=== PATIENT | female | born 1960 | race Caucasian/White ===

== ENCOUNTER 2018-03-02 21:58 | Emergency (ER) | payer OTHER ==
[~2018-03-02] VITALS: Ht 165.1 cm; Wt 63.5 kg
[2018-03-02] MEDS ORDERED: LEVEMIR (22:10)
[2018-03-02 22:19] LABS: ABSOLUTE BASOPHILS 0.1 thou/uL (0.0-0.2); ABSOLUTE EOSINOPHILS 0.4 thou/uL (0.0-0.7); ABSOLUTE LYMPHOCYTES 3.1 thou/uL (0.8-5.3); ABSOLUTE MONOCYTES 0.5 thou/uL (0.0-1.2); ABSOLUTE NEUTROPHILS 5.1 thou/uL (1.6-8.1); BASOPHILS 0.8 %; EOSINOPHILS 4.1 %; HEMATOCRIT 39.2 % (37.0-47.0); HEMOGLOBIN 13.3 gm/dL (12.0-15.0); LYMPHOCYTES 33.8 %; MCH 29.7 pg (26.0-34.0); MCHC 34.1 g/dL (28.0-37.0); MCV 87.3 fL (80.0-100.0); MONOCYTES 5.5 %; MPV 8.6 fl. (7.2-11.1); NUCLEATED RBCS 0 /100WBC; PLATELET COUNT* 263 thou/uL (150-400); POLYS 55.8 %; RBC 4.49 mil/uL (4.20-5.00); RDW-CV 12.8 % (10.5-14.5); WBC 9.2 thou/uL (4.0-11.0)
[2018-03-02 22:31] LABS: ANION GAP 9 mmol/L (7-16); BUN 16 mg/dL (7-18); CALCIUM 8.6 mg/dL (8.5-10.1); CHLORIDE 99 mmol/L (98-107); CO2 26 mmol/L (21-32); CREATININE 1.2 mg/dL (0.6-1.3); GLUCOSE 400 mg/dL (70-99); SODIUM 134 mmol/L (136-145)
[2018-03-02 22:38] LABS: ALBUMIN 3.8 g/dL (3.4-5.0); ALKALINE PHOSPHATASE 89 U/L (46-116); SGOT 11 U/L (15-37); SGPT 21 U/L (30-65); TOTAL BILIRUBIN 0.6 mg/dL (<0.1-1.0); TOTAL PROTEIN 7.2 g/dL (6.4-8.2); TROPONIN-I LEVEL <0.06 ng/mL (<0.06)
[2018-03-02] MEDS ORDERED: KEPPRA1000 MG (22:48)
[2018-03-02] MEDS ORDERED: HYDROCODON-ACE1 EAC5 (22:49)
[2018-03-02] MEDS ORDERED: NEURONTIN600 MG (22:50)
[2018-03-02] MEDS ORDERED: LOPRESSOR25 (22:50)
[2018-03-02] MEDS ORDERED: CRESTOR20 MG (22:51)
[2018-03-02] MEDS ORDERED: NORVASC10 MG (22:52)
[2018-03-02] MEDS ORDERED: LISINOPRIL20 MG (22:52)
[2018-03-02] MEDS ORDERED: MOBIC15 MG (22:53)
[2018-03-02] MEDS ORDERED: ASPIR 8181 MG (22:54)
[2018-03-02 23:26] VITALS: BP 143/54
--- NOTE | 2018-03-04 12:49 | EKG ---
[place] [address] ELECTROCARDIOGRAM REPORT Name: DB BURNHAM [id number] Admission: 03/02/18 Attend Phys: Discharge: 03/02/18 Date of : 60 Report #: [id number] THIS REPORT FOR: //name// [facility] ED Test Date: 2018-03-02 Test Time: 22:05:21 Pat Name: DB BURNHAM Department: Room: Gender: F [employer] Director: JYOTI : 1960 Requested By: Dimas Perez Order Number: [id number] MD: Pelon Stubbs Measurements Intervals [place] Rate: 74 P: 48 CA: 149 QRS: -12 QRSD: 80 T: 62 QT: 402 QTc: 446 Interpretive Statements Sinus rhythm No previous ECG available for comparison Electronically Signed On 03-04-2018 12:49:26 CDT by Pelon Stubbs [email or web address] <ELECTRONICALLY SIGNED> By: Pelon Stubbs MD, [facility] 03/04/18 1249 [id number] Pelon Stubbs MD, FACC /EPI
== END 2018-03-02 23:59 | disposition home or self-care (01) ==
LOC: M.ERS 21:58
PROVIDERS: Family Medicine
DX: R56.9 Unspecified convulsions (principal); E11.9 Type 2 diabetes mellitus without complications; I25.2 Old myocardial infarction; Z79.4 Long term (current) use of insulin; Z79.82 Long term (current) use of aspirin; F17.200 Nicotine dependence, unspecified, uncomplicated

== ENCOUNTER 2021-03-22 20:29 | Emergency (ER) | payer OTHER ==
[~2021-03-22] VITALS: Ht 149.9 cm; Wt 63.5 kg
[~2021-03-22 20:29] MED LIST: ASPIR 8181 MG; CRESTOR20 MG; HYDROCODON-ACE1 EAC5; KEPPRA1000 MG; LEVEMIR; LISINOPRIL20 MG; LOPRESSOR25; MOBIC15 MG; NEURONTIN600 MG; NORVASC10 MG
[2021-03-22] MEDS ORDERED: HUMALOG100 UNIT/1 SUBQ (20:38)
[2021-03-22] MEDS ORDERED: TRESIBA100 UNIT/1 SUBQ (20:40)
[2021-03-22 21:04] LABS: ABSOLUTE BASOPHILS 0.1 thou/uL (0.0-0.2); ABSOLUTE EOSINOPHILS 0.3 thou/uL (0.0-0.7); ABSOLUTE LYMPHOCYTES 2.5 thou/uL (0.8-5.3); ABSOLUTE MONOCYTES 0.6 thou/uL (0.0-1.2); ABSOLUTE NEUTROPHILS 4.8 thou/uL (1.6-8.1); BASOPHILS 1.3 %; EOSINOPHILS 4.2 %; HEMATOCRIT 39.9 % (37.0-47.0); HEMOGLOBIN 13.7 gm/dL (12.0-15.0); LYMPHOCYTES 29.8 %; MCHC 34.5 g/dL (28.0-37.0); MCV 86.9 fL (80.0-100.0); MONOCYTES 7.7 %; NUCLEATED RBCS 0 /100WBC; PLATELET COUNT* 290 thou/uL (150-400); RBC 4.59 mil/uL (4.20-5.00); RDW-CV 12.4 % (10.5-14.5); WBC 8.4 thou/uL (4.0-11.0)
[2021-03-22 21:11] LABS: URINE BILIRUBIN NEGATIVE (Negative); URINE BLOOD TRACE (Negative); URINE CLARITY CLEAR; URINE COLOR YELLOW; URINE GLUCOSE-RANDOM NEGATIVE (Negative); URINE KETONES NEGATIVE (Negative); URINE LEUKOCYTES-REFLEX NEGATIVE (Negative); URINE NITRITE-REFLEX NEGATIVE (Negative); URINE PROTEIN NEGATIVE (Negative); URINE SPECIFIC GRAVITY <= 1.005 (1.005-1.030); URINE UROBILINOGEN 0.2 E.U./dl (0.2-1.0)
[2021-03-22 21:16] LABS: CALCIUM 9.1 mg/dL (8.5-10.1); POTASSIUM 4.3 mmol/L (3.5-5.1)
[2021-03-22 21:20] LABS: ALBUMIN 4.1 g/dL (3.4-5.0); MAGNESIUM 1.9 mg/dL (1.8-2.4); TOTAL BILIRUBIN 0.5 mg/dL (<0.1-1.0); TOTAL PROTEIN 7.4 g/dL (6.4-8.2)
[2021-03-22 21:21] LABS: AMP/METHAMP Negative (Negative); BARBITURATES Negative (Negative); BENZODIAZEPINES Negative (Negative); COCAINE Negative (Negative); METHADONE Negative (Negative); OPIATES POSITIVE (Negative); PCP Negative (Negative); THC Negative (Negative)
[2021-03-22 21:53] VITALS: BP 155/98
--- NOTE | 2021-03-24 09:31 | EKG ---
[place] [address] ELECTROCARDIOGRAM REPORT Name: LUIS BURNHAMORAH Room: [facility]#: [id number] Admission: 03/22/21 Attend Phys: Discharge: 03/22/21 Date of : 60 Date of Service: 03/22/212034 Report #: [id number] THIS REPORT FOR: //name// [facility] ED Test Date: 2021-03-22 Test Time: 20:35:19 Pat Name: DB BURNHAM Department: Room: Gender: [employer]: [place] : 1960 Requested By: Lydia Baires Order Number: [id number] MD: Pelon Stubbs Measurements Intervals [place] Rate: 85 P: ND: QRS: -15 QRSD: 87 T: 34 QT: 374 QTc: 445 Interpretive Statements Sinus rhythm LVH by voltage Compared to ECG 03/02/2018 22:05:21 Left ventricular hypertrophy now present Baseline artifact is noted Electronically Signed On 03-24-2021 9:31:04 CDT by Pelon Stubbs [email or web address] <ELECTRONICALLY SIGNED> By: Pelon Stubbs MD, [facility] 03/24/2131 34 34 Pelon Stubbs MD, [facility] /EPI
== END 2021-03-22 21:53 | disposition home or self-care (01) ==
LOC: M.ERS 20:29
PROVIDERS: Emergency Medicine
DX: R56.9 Unspecified convulsions (principal); E11.9 Type 2 diabetes mellitus without complications; Z79.82 Long term (current) use of aspirin; Z79.4 Long term (current) use of insulin; Z79.899 Other long term (current) drug therapy; Z88.1 Allergy status to other antibiotic agents